=== PATIENT | male | born 1955 | race Caucasian/White ===

== ENCOUNTER 2016-11-19 09:32 | Inpatient (IN) | payer MEDICARE, MEDICAID, OTHER ==
[~2016-11-19] VITALS: Ht 188 cm; Wt 126.6 kg
[2016-11-19] VITALS (7 sets, daily range): BP systolic 141–190; BP diastolic 73–101; PULSE 110–126; RESP 20–32; TEMP 98.7; O2SAT 93–96
[~2016-11-19 09:32] MED LIST: DUONI INH; GUAI600 PO; LISI-360 PO; LORTA5 PO; MEDR4PAK3 PO; SYMB160A INH; Z.0.OXYGEN INH
[2016-11-19] MEDS ORDERED: SODIUM CHLOR 0.9% 1000 ML INJ 1,000 ML IV ONE (09:35)
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
[2016-11-19] MEDS ORDERED: SYMB160A INH (09:48)
[2016-11-19] MEDS ORDERED: ALBUAER3 INH (09:48)
[2016-11-19] MEDS ORDERED: LISI-515 PO (09:48)
[2016-11-19] MEDS ORDERED: GLIP5TAB8 PO (09:48)
[2016-11-19] MEDS ORDERED: METF1000 PO (09:48)
[2016-11-19] MEDS: RESP: ALBUTEROL 2.5 MG/IPRATROPIUM 0.5 MG NEB (SCH) INH ×6 (09:51→23:33)
[2016-11-19 10:06] LABS: AUTOMATED NEUTROPHIL # 12.1 TH/MM3 (1.8-7.7); BASOPHIL # 0.1 TH/MM3 (0-0.2); BASOPHIL % 0.7 % (0.0-2.0); EOSINOPHIL # 0.1 TH/MM3 (0-0.4); EOSINOPHIL % 0.8 % (0.0-4.0); HEMO FLAGS DIFF FINAL; LYMPH % 14.7 % (9.0-44.0); LYMPHOCYTE # 2.4 TH/MM3 (1.0-4.8); MEAN CELL VOLUME 82.1 FL (80.0-100.0); MEAN CORPUSCULAR HEMOGLOBIN 27.1 PG (27.0-34.0); MONO % 7.7 % (0.0-8.0); NEUT % 76.1 % (16.0-70.0); PLATELET COUNT 242 TH/MM3 (150-450); RED BLOOD COUNT 6.09 MIL/MM3 (4.50-5.90); RED CELL DISTRIBUTION WIDTH 14.4 % (11.6-17.2)
--- NOTE | 2016-11-19 10:21 | RADRPT ---
EXAM DATE/TIME: 11/19/2016 09:56 [place] COMPARISON: CT THORAX W/O CONTRAST, October 18, 2014, 12:54. INDICATIONS : Short of breath. MEDICAL HISTORY : None. SURGICAL HISTORY : None. ENCOUNTER: Initial ACUITY: 3 days PAIN SCORE: 0/10 LOCATION: Bilateral chest FINDINGS: The lungs are hyperinflated. There is blunting of the lateral costophrenic angles consistent with sma ll pleural effusions. Remainder of the lungs are clear. Heart size is normal. Pulmonary vasculature i s normal. CONCLUSION: Stable emphysematous changes of lungs. Small bilateral pleural effusions.. Ann Romero MD on November 19, 2016 at 10:19 Board Certified Radiologist. This report was verified electronically.
[2016-11-19 10:22] LABS: ALKALINE PHOSPHATASE 100 U/L (45-117); ALT (GPT) 29 U/L (12-78); ANION GAP 9 MEQ/L (5-15); AST (GOT) 13 U/L (15-37); BICARBONATE 25.5 MEQ/L (21.0-32.0); BLOOD UREA NITROGEN 9 MG/DL (7-18); CHLORIDE 101 MEQ/L (98-107); GLOMERULAR FILTRATION RATE 90 ML/MIN (>89); SODIUM (NA) 135 MEQ/L (136-145); TOTAL BILIRUBIN ADULT 0.7 MG/DL (0.2-1.0)
[2016-11-19 10:23] LABS: POTASSIUM 3.9 MEQ/L (3.5-5.1)
[2016-11-19] MEDS ORDERED: cefTRIAXone INJ 2,000 MG in SODIUM CHLORIDE 0.9% INJ 100 ML IV STA (10:35)
[2016-11-19] MEDS ORDERED: AZITHROMYCIN INJ 500 MG in SODIUM CHLOR 0.9% 250 ML INJ 250 ML IV STA (10:35)
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
[2016-11-19] MEDS ORDERED: ALBU.5I NEB (11:26)
[2016-11-19] MEDS ORDERED: ACETAMINOPHEN 325 MG TAB PO PRN (11:30)
[2016-11-19] MEDS ORDERED: NALOXONE HCL 0.4 MG/ML AMP IV PRN (11:30)
[2016-11-19] MEDS ORDERED: RESP: ALBUTEROL 2.5 MG/3 ML NEB (PRN) INH (11:30)
[2016-11-19] MEDS ORDERED: SODIUM CHLORIDE 0.9% FLUSH 5 ML FLUSH FLUSH PRN (11:30)
[2016-11-19] MEDS ORDERED: hydrALAZINE HCL 10 MG TAB PO PRN (11:45)
[2016-11-19] MEDS ORDERED: ONDANSETRON ODT 4 MG TAB PO PRN (11:45)
[2016-11-19] MEDS ORDERED: GLUCAGON 1 MG/ML VIAL OTHER PRN (11:45)
[2016-11-19] MEDS ORDERED: DEXTROSE 50% IN WATER 50 ML VIAL(D50) IV PUSH PRN (11:45)
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
[2016-11-19 11:56] LABS: LACTIC ACID GHOST NOT REPORTABLE
[2016-11-19] MEDS: methylPREDNISolone SOD SUCC 125 MG/2 ML VIAL IVP SCH ×2 (11:57→18:08)
[2016-11-19] MEDS: ENOXAPARIN SODIUM 40 MG/0.4 ML SYRINGE SQ SCH (11:57)
[2016-11-19] MEDS: BUDESONIDE-FORMOTEROL 160/4.5 MCG INHALER INH SCH ×2 (12:32→21:00)
[2016-11-19] MEDS: PANTOPRAZOLE SOD 40 MG DELAYED RELEASE TAB PO SCH (13:01)
[2016-11-19] MEDS: LISINOPRIL 20 MG TAB PO SCH (13:01)
[2016-11-19 13:24] LABS: BLOOD GAS BASE EXCESS -3.2 mmol/L (-2-2); BLOOD GAS CARBOXYHEMOGLOBIN 2.4 % (0-4); BLOOD GAS HCO3 21 mmol/L (22-26); BLOOD GAS O2 HGB SATURATION 90 % (90-100); BLOOD GAS OXYGEN CONTENT 21.7 Vol % (12.0-20.0); BLOOD GAS PCO2 36 mmHg (38-42); BLOOD GAS PO2 67 mmHG (61-120); BLOOD GAS TOTAL HGB 17.1 G/DL (12.0-16.0); TEMP CORR TO 98.6
[2016-11-19 13:25] LABS: CRITICAL VALUE NO; DRAW SITE LT RADIAL; LITER FLOW 3 L/M; NUMBER OF ARTERIAL PUNCTURES 1; OXYGEN DEVICE NASAL CANNULA; STAT YES; ULNAR PULSE Y
[2016-11-19 14:36] LABS: LACTIC ACID GHOST NOT REPORTABLE
[2016-11-19] MEDS: NICOTINE 21 MG/24 HR PATCH TD SCH (15:05)
[2016-11-19] MEDS: INSULIN ASPART SUPPLEMENTAL SCALE SQ SCH ×2 (16:41→21:00)
[2016-11-19] MEDS: SODIUM CHLORIDE 0.9% FLUSH 5 ML FLUSH FLUSH SCH (21:00)
[2016-11-20] VITALS (9 sets, daily range): BP systolic 128–161; BP diastolic 66–78; PULSE 101–114; RESP 18–22; TEMP 97.5–98.8; O2SAT 93–95
[2016-11-20] MEDS: methylPREDNISolone SOD SUCC 125 MG/2 ML VIAL IVP SCH ×4 (00:17→18:51)
[2016-11-20] MEDS: RESP: ALBUTEROL 2.5 MG/IPRATROPIUM 0.5 MG NEB (SCH) INH ×3 (03:43→11:46)
[2016-11-20 04:27] LABS: AUTOMATED NEUTROPHIL # 15.7 TH/MM3 (1.8-7.7); BASOPHIL # 0.1 TH/MM3 (0-0.2); BASOPHIL % 0.5 % (0.0-2.0); EOSINOPHIL % 0.2 % (0.0-4.0); HEMATOCRIT 46.1 % (39.0-51.0); HEMO FLAGS DIFF FINAL; LYMPH % 6.8 % (9.0-44.0); LYMPHOCYTE # 1.2 TH/MM3 (1.0-4.8); MEAN CELL VOLUME 81.7 FL (80.0-100.0); MEAN CORPUSCULAR HEMOGLOBIN 27.4 PG (27.0-34.0); MEAN CORPUSCULAR HGB CONC 33.5 % (32.0-36.0); MONO % 2.3 % (0.0-8.0); NEUT % 90.2 % (16.0-70.0); PLATELET COUNT 219 TH/MM3 (150-450); RED BLOOD COUNT 5.64 MIL/MM3 (4.50-5.90); RED CELL DISTRIBUTION WIDTH 14.5 % (11.6-17.2); WHITE BLOOD COUNT 17.4 TH/MM3 (4.0-11.0)
[2016-11-20 04:58] LABS: BICARBONATE 24.2 MEQ/L (21.0-32.0); POTASSIUM 3.9 MEQ/L (3.5-5.1)
[2016-11-20] MEDS: INSULIN ASPART SUPPLEMENTAL SCALE SQ SCH ×4 (07:00→22:25)
[2016-11-20] MEDS: REMOVE OLD NICODERM (NICOTINE) PATCH TD SCH (09:00)
[2016-11-20] MEDS ORDERED: LISINOPRIL 20 MG TAB PO SCH (09:00)
[2016-11-20] MEDS: NICOTINE 21 MG/24 HR PATCH TD SCH (09:00)
[2016-11-20] MEDS ORDERED: NICOTINE 21 MG/24 HR PATCH TD SCH (09:00)
--- NOTE | 2016-11-20 09:33 | HHI.FPPN ---
Subjective Remarks Patient seen and examined this am. Feels that hes breathing better but still worse than his base line. He is denying CP. Reports that his hernia popped out twice. He has had no fevers. Still requiring 4 L by NC, saturating at 94% (Alexandrea Christensen MD R3) Objective Vitals Vital Signs Date Time Temp Pulse Resp B/P Pulse Ox O2 Delivery O2 Flow Rate FiO2 11/20/16 04:00 101 18 147/73 94 Nasal Cannula 3 11/20/16 00:00 109 20 131/75 94 Nasal Cannula 3 11/19/16 19:37 93 Nasal Cannula 3.00 11/19/16 19:30 116 20 141/73 94 Nasal Cannula 3 11/19/16 15:00 118 22 160/74 94 Room Air 11/19/16 12:00 116 22 164/90 94 Nasal Cannula 3 11/19/16 11:54 93 Nasal Cannula 3 11/19/16 11:00 110 24 170/95 95 BiPAP 50 11/19/16 09:48 96 60 11/19/16 09:44 97 BiPAP 50 11/19/16 09:41 98.7 126 32 190/101 96 I/O 11/19/16 11/19/16 11/19/16 11/20/16 11/20/16 11/20/16 07:00 15:00 23:00 07:00 15:00 23:00 Intake Total 240 ml Output Total 400 ml Balance -160 ml Intake Oral 240 ml Output Urine Total 400 ml # Voids 1 (Alexandrea Christensen MD R3) Result Diagram: 11/20/1641011/20/16410 Imaging Last Impressions Chest X-Ray 11/19/16934 Signed Impressions: Service Date/Time: Saturday, November 19, 2016 09:56 - CONCLUSION: Stable emphysematous changes of lungs. Small bilateral pleural effusions.. Ann Romero MD Objective Remarks CONST: Adult male in appears comfortable DERM: Mildline back with healing biopsy site- erythematous 5 x 7cm midline circular dermatitis. Stasis dermatitis at ankles. Cat scratches on UE. HEENT: PERRL. EOMI. MMM. NECK: Thick neck. CV: RRR. No murmurs. No peripheral edema. Pulse 2+ radial. Cap refil <2 sec. RESP: no increase work of breathing, prolong expiratory phase, bilat exp wheezes diffusely. GI: Abdomen obese, NTND. +BS. MSK: Moves all four limbs against gravity. NEURO: Motor and sensory function grossly intact. PSYCH: Affect appropriate. Moderate insight. (Alexandrea Christensen MD R3) A/P Assessment and Plan 61y male with history of COPD/emphysema and tobacco abuse presents with COPD exacerbation. Discharge Planning dc pending improved clinical improvement. (Alexandrea Christensen MD R3) Attending Attestation A detailed discussion with Dr Christensen, Dr Espinal, Dr Brooks and Dr Uriostegui about patients admission was held this morning, patient was then seen and examined by the team, agree with the contents of this note,Assessment and Plan appropiate, See Orders. (Christopher Trivedi MD) Problem List: (1) COPD exacerbation Status: Acute Plan: Impression: Increased dyspnea, sputum production, and CV disease places patient at moderate risk COPD exacerbation. CXR (11/19) negative for acute infiltrate. Leukocytosis improving. -COPD educator consult, respiratory consult, PT consult O2 supplimentation, maintains ats btw 88-92%, incentive spirometry -Levofloxacin 750mg PO daily (11/19- ) -Solu-Medrol 60mg q6h IV MELISSA + PPI ppx -Duonebs q4h MELISSA + Symbicort BID +-Albuterol q2h PRN -Influenza neg A/B - Sputum Cx ordered - Persistent tachycardia could be due to breathing treatments, but combined with hypoxia will r/o PE with CTA (2) CAD (coronary artery disease) Status: Chronic Plan: Impression: History of [place] ~1999. Denies grafts. -Continue home lisinopril -Denies home aspirin, statin, antiplatelet, anticoagulant. Maximize CAD medications while inpatient -Continue telemetry -Daily BMPs (3) DM2 (diabetes mellitus, type 2) Status: Chronic Plan: -Hold home glipizide and metformin 1000mg BID -LSSI, Accue-Checks (4) Tobacco abuse Status: Chronic Plan: -Smoking cessation counseling provided -Nicotine patch 21mcg patch apply daily, remove HS to avoid bad dreams (5) Obesity (BMI 30-39.9) Status: Chronic Plan: - encourage lifestyle modifications to reach healthy weight BMI <25 (6) FEN/PPX Status: Acute Plan: Fluids: PO Electrolytes: monitor and replete PRN, wnl on admission Nutrition: Diabetic diet, heart healthy diet DVT ppx: SCDs + Lovenox 40mg subcutaneous daily GI ppx: Protonix 40mg daily (on steroids) (Alexandrea Christensen MD R3) Problem Qualifiers (1) CAD (coronary artery disease): Qualified Code: I25.10 - Coronary artery disease involving [place] coronary artery of [place] heart, angina presence unspecified (2) DM2 (diabetes mellitus, type 2): Qualified Code: E11.8 - Type 2 diabetes mellitus with complication, without long-term current use of insulin Alexandrea Christensen MD R3 Nov 20, 2016 09:33 Christopher Trivedi MD Nov 20, 2016 16:29
[2016-11-20] MEDS ORDERED: IOHEXOL 350 MG/ML 10 ML VIAL (for RAD DIAG) IV ONE (10:01)
--- NOTE | 2016-11-20 10:14 | RADRPT ---
EXAM DATE/TIME: 11/20/2016 09:45 [facility] COMPARISON: CT THORAX W/O CONTRAST, October 18, 2014, 12:54. INDICATIONS : Shortness of breath. IV CONTRAST: 70 cc Omnipaque 350 (iohexol) IV RADIATION DOSE: 22.27 CTDIvol (mGy) MEDICAL HISTORY : Chronic obstructive pulmonary disease. Myocardial infarction. Congestive heart failure.Hypertension, Diabetes. SURGICAL HISTORY : None. ENCOUNTER: Initial ACUITY: 2 days PAIN SCALE: 0/10 LOCATION: chest TECHNIQUE: Volumetric scanning of the chest was performed using a pulmonary embolism protocol MIP images were reconstructed. Using automated exposure control and adjustment of the mA and/or kV acco rding to patient size, radiation dose was kept as low as reasonably achievable to obtain optimal diag nostic quality images. FINDINGS: PULMONARY ARTERIES:No filling defects are seen in the pulmonary arteries through the segmental level. LUNGS: The previously noted small right-sided pleural effusion has slightly decreased in size. Th ere is a persistent area of peripheral parenchymal increased density with adjacent swelling of vessel s and adjacent mild pleural thickening consistent with rounded atelectasis. This appears unchanged fr om the exam of 2013. No new areas of consolidation are noted. Stable background of moderate centrilob ular emphysematous change. PLEURAE: Small right-sided pleural effusion and adjacent pleural thickening. MEDIASTINUM: There is good visualization of the great vessels of the middle mediastinum. No evid ence of mediastinal or hilar adenopathy/mass. MUSCULOSKELETAL: Within normal limits for patient age. MISCELLANEOUS: Splenic calcifications consistent with granulomatous disease. Diffuse fatty infilt ration of the liver. CONCLUSION: 1. No evidence of PE. 2. Stable moderate centrilobular emphysema with an area of persistent rounded atelectasis identified in the right lower lung, unchanged from 2014. There is a small right-sided pleural effusion which has decreased in size as compared to the prior exam. Ann Romero MD on November 20, 2016 at 10:07 Board Certified Radiologist. This report was verified electronically.
[2016-11-20] MEDS: LEVOFLOXACIN 750 MG TAB PO SCH (10:35)
[2016-11-20] MEDS: PANTOPRAZOLE SOD 40 MG DELAYED RELEASE TAB PO SCH (10:35)
[2016-11-20] MEDS: LISINOPRIL 20 MG TAB PO SCH (10:35)
[2016-11-20] MEDS: BUDESONIDE-FORMOTEROL 160/4.5 MCG INHALER INH SCH ×2 (10:36→22:23)
[2016-11-20] MEDS: ENOXAPARIN SODIUM 40 MG/0.4 ML SYRINGE SQ SCH (14:04)
[2016-11-20] MEDS ORDERED: RESP: IPRATROPIUM 0.5 MG/2.5 ML NEB NEB PRN (16:00)
[2016-11-20] MEDS: SODIUM CHLORIDE 0.9% FLUSH 5 ML FLUSH FLUSH SCH (22:30)
--- NOTE | 2016-11-20 22:50 | EKG ---
Date Performed: 11/19/2016 Time Performed: 11:53:39 PTAGE: 61 years EKG: SINUS TACHYCARDIA MARKED LEFT AXIS DEVIATION ABNORMAL ECG PREVIOUS TRACING : 10/17/2014 01.22 Compared to prior tracing no significant change DOCTOR: Klaus Rock Interpretating Date/Time 11/20/2016 22:46:34
[2016-11-21] VITALS (9 sets, daily range): BP systolic 117–151; BP diastolic 57–86; PULSE 85–109; RESP 18–24; TEMP 97.2–98; O2SAT 92–97
[2016-11-21] MEDS: methylPREDNISolone SOD SUCC 125 MG/2 ML VIAL IVP SCH ×2 (00:42→06:26)
[2016-11-21] MEDS: SODIUM CHLORIDE 0.9% FLUSH 5 ML FLUSH FLUSH SCH ×3 (00:47→21:07)
[2016-11-21 06:03] LABS: AUTOMATED NEUTROPHIL # 17.4 TH/MM3 (1.8-7.7); BASOPHIL % 0.1 % (0.0-2.0); HEMATOCRIT 45.4 % (39.0-51.0); HEMO FLAGS DIFF FINAL; LYMPH % 4.7 % (9.0-44.0); LYMPHOCYTE # 0.9 TH/MM3 (1.0-4.8); MEAN CELL VOLUME 82.5 FL (80.0-100.0); MEAN CORPUSCULAR HEMOGLOBIN 27.4 PG (27.0-34.0); MEAN CORPUSCULAR HGB CONC 33.2 % (32.0-36.0); MONO % 3.1 % (0.0-8.0); NEUT % 92.1 % (16.0-70.0); PLATELET COUNT 232 TH/MM3 (150-450); RED BLOOD COUNT 5.51 MIL/MM3 (4.50-5.90); RED CELL DISTRIBUTION WIDTH 14.5 % (11.6-17.2); WHITE BLOOD COUNT 18.9 TH/MM3 (4.0-11.0)
[2016-11-21 06:20] LABS: BICARBONATE 26.4 MEQ/L (21.0-32.0); POTASSIUM 4.1 MEQ/L (3.5-5.1)
[2016-11-21] MEDS: INSULIN ASPART SUPPLEMENTAL SCALE SQ SCH ×4 (06:27→21:06)
[2016-11-21] MEDS ORDERED: RESP: ALBUTEROL 2.5 MG/3 ML NEB (PRN) NEB (07:30)
[2016-11-21] MEDS ORDERED: RESP: IPRATROPIUM 0.5 MG/2.5 ML NEB NEB SCH (08:00)
[2016-11-21] MEDS: PANTOPRAZOLE SOD 40 MG DELAYED RELEASE TAB PO SCH (08:56)
[2016-11-21] MEDS: LEVOFLOXACIN 750 MG TAB PO SCH (08:56)
[2016-11-21] MEDS: LISINOPRIL 20 MG TAB PO SCH (08:56)
[2016-11-21] MEDS: NICOTINE 21 MG/24 HR PATCH TD SCH (08:57)
[2016-11-21] MEDS: REMOVE OLD NICODERM (NICOTINE) PATCH TD SCH (08:57)
[2016-11-21] MEDS: BUDESONIDE-FORMOTEROL 160/4.5 MCG INHALER INH SCH ×2 (09:06→21:07)
--- NOTE | 2016-11-21 09:20 | HHI.FPPN ---
Subjective Remarks No acute issues overnight. Mild tachycardia ranging 851 12 overnight. Currently saturating 95% on 4L NC. Overall, patient is feeling much better today. His shortness of breath has significantly improved. He denies any chest pain, fever, chills, nausea, vomiting, or diarrhea. He is tolerating by mouth. Regular bowel movements. Objective Vitals Vital Signs Date Time Temp Pulse Resp B/P Pulse Ox O2 Delivery O2 Flow Rate FiO2 11/21/16 08:00 97.2 85 20 135/70 95 11/21/16 04:00 98.0 97 20 133/86 93 11/21/16 00:00 97.4 105 22 133/80 92 11/20/16 21:48 Nasal Cannula 4.00 11/20/16 21:00 108 11/20/16 20:00 97.6 112 20 156/70 93 11/20/16 17:00 97.5 106 20 161/78 93 11/20/16 14:12 114 22 128/66 95 11/20/16 14:00 114 22 128/66 95 11/20/16 11:49 93 Nasal Cannula 4.00 I/O 11/20/16 11/20/16 11/20/16 11/21/16 11/21/16 11/21/16 07:00 15:00 23:00 07:00 15:00 23:00 Intake Total 360 ml 240 ml Output Total 1200 ml Balance -840 ml 240 ml Intake Oral 360 ml 240 ml Output Urine Total 1200 ml # Voids 2 Result Diagram: 11/21/16 0458 11/21/[address] Angiography 11/20/16 0000 Signed Impressions: Service Date/Time: Sunday, November 20, 2016 09:45 - CONCLUSION: 1. No evidence of PE. 2. Stable moderate centrilobular emphysema with an area of persistent rounded atelectasis identified in the right lower lung, unchanged from 2014. There is a small right-sided pleural effusion which has decreased in size as compared to the prior exam. Ann Romero MD Chest X-Ray 11/19/16 0935 Signed Impressions: Service Date/Time: Saturday, November 19, 2016 09:56 - CONCLUSION: Stable emphysematous changes of lungs. Small bilateral pleural effusions.. Ann Romero MD Objective Remarks CONST: Adult male sitting up in bed, appears comfortable. DERM: Midline back with healing biopsy site- 5 x 7cm area of erythema. Stasis dermatitis at ankles. Cat scratches on UE and lower extremities bilaterally. HEENT: PERRLA. EOMI. MMM. NECK: Thick neck. CV: RRR. No murmurs. No peripheral edema. Pulse 2+ radial. Cap refil <2 sec. RESP: Regular respiratory effort, able to talk in complete sentences without shortness of breath. No accessory muscle use. Nasal cannula in place. Prolonged expiratory phase with wheezes throughout lung olsen bilaterally. Improved air movement compared to prior exam. GI: Abdomen obese, NTND. +BS. MSK: Moves all four limbs against gravity. NEURO: Motor and sensory function grossly intact. PSYCH: Affect appropriate. A/P Assessment and Plan 61y male with history of COPD/emphysema and tobacco abuse who presented with shortness of breath and was admitted for COPD exacerbation. Discharge Planning Anticipate discharge in the next 1-2 days pending clinical improvement. Problem List: (1) COPD exacerbation Status: Acute Plan: Increased dyspnea, sputum production, and history of CV disease- moderate COPD exacerbation. 11/19 CXR significant for stable emphysematous changes of lung. Small bilateral pleural effusions. 11/20 CTA showed no evidence of PE. Stable moderate centrilobular emphysema with an area of persistent rounded atelectasis identified in right lower lung. Leukocytosis of 16.0 on admission, currently trending up likely secondary to steroids. Patient has O2 at home but admits to poor compliance O2 sat 92-95% on 4L O2 Influenza A/B negative 11/18/16 PFT's: Severe obstruction, FVC 41ml, FEV1 58ml, lung age 89 years. No significant improvement in FVC and FEV1 with albuterol. Plan: -COPD educator consult O2 supplementation PRN, maintains sats btw 88-92%, incentive spirometry -Levofloxacin 750mg PO daily (11/19- ) -Solu-Medrol 60mg q6h IV MELISSA + PPI ppx, will transition to PO Prednisone 40mg PO daily today - Symbicort BID - DuoNeb Q4H - Albuterol Q2H PRN - Home O2 Walk test (2) CAD (coronary artery disease) Status: Chronic Plan: Impression: History of [place] ~1999. Denies grafts. -Continue home lisinopril -Denies home aspirin, statin, antiplatelet, anticoagulant. Maximize CAD medications while inpatient -Continue telemetry -Daily BMPs (3) DM2 (diabetes mellitus, type 2) Status: Chronic Plan: -Hold home glipizide and metformin 1000mg BID Bedside glucose ranging [id number], requiring 26 units in the past 24 hours -Accu-Cheks and Low dose SSI (4) Tobacco abuse Status: Chronic Plan: -Smoking cessation counseling provided -Nicotine patch 21mcg patch apply daily, remove HS to avoid bad dreams (5) Obesity (BMI 30-39.9) Status: Chronic Plan: - encourage lifestyle modifications to reach healthy weight BMI <25 (6) FEN/PPX Status: Acute Plan: Fluids: None Electrolytes: wnl, continue to monitor and replete PRN Nutrition: Diabetic diet, heart healthy diet DVT ppx: SCDs + Lovenox 40mg subcutaneous daily GI ppx: Protonix 40mg daily (on steroids) ad[place] Dr. Todd Trivedi Problem Qualifiers (1) CAD (coronary artery disease): Qualified Code: I25.10 - Coronary artery disease involving [place] coronary artery of [place] heart, angina presence unspecified (2) DM2 (diabetes mellitus, type 2): Qualified Code: E11.8 - Type 2 diabetes mellitus with complication, without long-term current use of insulin Renuka Espinal MD R2 Nov 21, 2016 09:20
[2016-11-21] MEDS: RESP: ALBUTEROL 2.5 MG/IPRATROPIUM 0.5 MG NEB (SCH) NEB ×3 (12:19→20:22)
[2016-11-21] MEDS: predniSONE 50 MG TAB PO SCH (12:28)
[2016-11-21] MEDS: ENOXAPARIN SODIUM 40 MG/0.4 ML SYRINGE SQ SCH (12:29)
[2016-11-22] VITALS: BP 131/65; PULSE 94; RESP 20; TEMP 97.5; O2SAT 92
[2016-11-22 04:00] VITALS: BP 125/64; PULSE 92; RESP 20; TEMP 97.1; O2SAT 95
[2016-11-22] MEDS: INSULIN ASPART SUPPLEMENTAL SCALE SQ SCH (06:10)
[2016-11-22 07:32] LABS: HEMATOCRIT 48.4 % (39.0-51.0); MEAN CELL VOLUME 82.2 FL (80.0-100.0); MEAN CORPUSCULAR HEMOGLOBIN 27.3 PG (27.0-34.0); MEAN CORPUSCULAR HGB CONC 33.1 % (32.0-36.0); PLATELET COUNT 259 TH/MM3 (150-450); RED BLOOD COUNT 5.88 MIL/MM3 (4.50-5.90); RED CELL DISTRIBUTION WIDTH 14.7 % (11.6-17.2); REVIEW FLAG FINAL; WHITE BLOOD COUNT 16.1 TH/MM3 (4.0-11.0)
[2016-11-22 08:00] VITALS: BP 172/82; PULSE 102; RESP 24; TEMP 97.5; O2SAT 94
[2016-11-22] MEDS ORDERED: PANT40TA3 PO (08:12)
[2016-11-22] MEDS ORDERED: LEVA750T PO (08:12)
--- NOTE | 2016-11-22 08:12 | HHI.DCPOC ---
Discharge Care Plan Diagnosis: (1) COPD exacerbation Goals to Promote Your Health * To prevent worsening of your condition and complications * To maintain your health at the optimal level Directions to Meet Your Goals Take your medications as prescribed Follow your dietary instruction Follow activity as directed Keep your appointments as scheduled Take your immunizations and boosters as scheduled If your symptoms worsen call your PCP, if no PCP go to Urgent Care Center or Emergency Room Smoking is Dangerous to Your Health. Avoid second hand smoke Call the 24-hour hour crisis hotline for domestic abuse at Renuka Espinal MD R2 Nov 22, 2016 08:12
[2016-11-22] MEDS ORDERED: VENTAER INH (08:15)
[2016-11-22] MEDS ORDERED: OXYGENTANK NAS.CANULA ×2 (08:15→08:17)
[2016-11-22] MEDS: RESP: ALBUTEROL 2.5 MG/IPRATROPIUM 0.5 MG NEB (SCH) NEB (08:16)
[2016-11-22] MEDS ORDERED: PRED20 PO (08:17)
[2016-11-22 08:19] VITALS: O2SAT 94
--- NOTE | 2016-11-22 08:35 | HHI.FPPN ---
Subjective Remarks No acute events overnight. AFVSS. Feels he is breathing much better. Denies f/ c, n/v, CP/pal, abd pain. Requesting discharge. Endorsed understanding of discharge with antibiotic, steroid, and follow up with PCP. All questions answered. Has oxygen at home, 1.5miles from here. Does not have portable O2. Will discharge with O2 tank. Objective Vitals Vital Signs Date Time Temp Pulse Resp B/P Pulse Ox O2 Delivery O2 Flow Rate FiO2 11/22/16 08:19 94 Nasal Cannula 4.00 11/22/16 04:00 97.1 92 20 125/64 95 11/22/16 00:00 97.5 94 20 131/65 92 11/21/16 20:26 100 11/21/16 20:25 95 Nasal Cannula 4.00 11/21/16 20:00 97.4 104 24 140/82 92 11/21/16 16:00 97.4 99 22 151/82 95 11/21/16 16:00 90 11/21/16 12:31 4.00 11/21/16 12:21 94 Nasal Cannula 4.00 11/21/16 12:00 97.3 109 20 124/61 92 I/O 11/21/16 11/21/16 11/21/16 11/22/16 11/22/16 11/22/16 07:00 15:00 23:00 07:00 15:00 23:00 Intake Total 240 ml 720 ml 480 ml 360 ml Output Total 360 ml Balance 240 ml 720 ml 480 ml 0 ml Intake Oral 240 ml 720 ml 480 ml 360 ml IV Total 0 ml Output Urine Total 360 ml # Voids 2 3 4 # Bowel Movements 3 0 0 Result Diagram: 11/22/16 0720 11/21/16 [address] Angiography 11/20/16 0000 Signed Impressions: Service Date/Time: Sunday, November 20, 2016 09:45 - CONCLUSION: 1. No evidence of PE. 2. Stable moderate centrilobular emphysema with an area of persistent rounded atelectasis identified in the right lower lung, unchanged from 2014. There is a small right-sided pleural effusion which has decreased in size as compared to the prior exam. Ann Romero MD Chest X-Ray 11/19/16 0935 Signed Impressions: Service Date/Time: Saturday, November 19, 2016 09:56 - CONCLUSION: Stable emphysematous changes of lungs. Small bilateral pleural effusions.. Ann Romero MD Objective Remarks CONST: Adult male sitting up in bed, appears comfortable. DERM: Midline back with healing biopsy site- 5 x 7cm area of erythema. Stasis dermatitis at ankles. Cat scratches on UE and lower extremities bilaterally. HEENT: PERRLA. EOMI. MMM. NECK: Thick neck. CV: RRR. No murmurs. No peripheral edema. Pulse 2+ radial. Cap refil <2 sec. RESP: Able to talk in complete sentences without shortness of breath. NC in place. Prolonged expiratory phase with wheezes throughout lung olsen bilaterally. GI: Abdomen obese, NTND. +BS. MSK: Moves all four limbs against gravity. NEURO: Motor and sensory function grossly intact. PSYCH: Affect gruff, appropriate. A/P Assessment and Plan 61y male with history of COPD/emphysema and tobacco abuse, presented with shortness of breath, admitted 11/19/15 for COPD exacerbation. Discharge Planning Today SDW: Dr Jaramillo, Student Doctor Radha, MS4 DW: Dr Trivedi Problem List: (1) COPD exacerbation Status: Acute Plan: Increased dyspnea, sputum production, and history of CV disease- moderate COPD exacerbation. 11/19 CXR significant for stable emphysematous changes of lung. Small bilateral pleural effusions. 11/20 CTA showed no evidence of PE. Stable moderate centrilobular emphysema with an area of persistent rounded atelectasis identified in right lower lung. Leukocytosis of 16.0 on admission, currently trending up likely secondary to steroids. O2 sat 92-95% on 4L O2 Influenza A/B negative 11/18/16 PFT's: Severe obstruction, FVC 41ml, FEV1 58ml, lung age 89 years. No significant improvement in FVC and FEV1 with albuterol. Plan: -Home O2 Walk test: 87% on RA, 93% on 4L O2 at rest, walking not performed -COPD educator was consulted: O2 supplementation PRN, maintains sats btw 88-92% , incentive spirometry -Levofloxacin 750mg PO daily (11/20-11/25), discharge with med, 5 days total -Prednisone 40mg PO daily (11/19--11/24), discharge with med, 5 days total -Symbicort BID + DuoNeb Q4H +- Albuterol Q2H PRN -O2 at home but admits to poor compliance. Discharge with O2 tank (2) CAD (coronary artery disease) Status: Chronic Plan: Impression: History of [place] ~1999. Denies grafts. Plan -Continue home lisinopril -Denies home aspirin, statin, antiplatelet, anticoagulant. -Recommend when follow up with PCP, start aspirin 81mg, beta-andra, and statin due to history of [place] and CAD -Continue telemetry, Daily BMPs (3) DM2 (diabetes mellitus, type 2) Status: Chronic Plan: -Accu-Cheks and Low dose SSI -Resume home glipizide and metformin 1000mg BID at discharge (4) Tobacco abuse Status: Chronic Plan: -Smoking cessation counseling provided -Nicotine patch 21mcg patch apply daily, remove HS to avoid bad dreams -will discharge with nicotine patch (5) Obesity (BMI 30-39.9) Status: Chronic Plan: - encourage lifestyle modifications to reach healthy weight BMI <25 (6) FEN/PPX Status: Acute Plan: Fluids: PO Electrolytes: wnl, continue to monitor and replete PRN Nutrition: Diabetic diet, heart healthy diet DVT ppx: SCDs + Lovenox 40mg subcutaneous daily GI ppx: Protonix 40mg daily (on steroids) Problem Qualifiers (1) CAD (coronary artery disease): Qualified Code: I25.10 - Coronary artery disease involving [place] coronary artery of [place] heart, angina presence unspecified (2) DM2 (diabetes mellitus, type 2): Qualified Code: E11.8 - Type 2 diabetes mellitus with complication, without long-term current use of insulin Shauna Brooks MD R1 Nov 22, 2016 08:34
[2016-11-22] MEDS: LISINOPRIL 20 MG TAB PO SCH (08:39)
[2016-11-22] MEDS: predniSONE 50 MG TAB PO SCH (08:39)
[2016-11-22] MEDS: PANTOPRAZOLE SOD 40 MG DELAYED RELEASE TAB PO SCH (08:39)
[2016-11-22] MEDS: LEVOFLOXACIN 750 MG TAB PO SCH (08:39)
[2016-11-22] MEDS: SODIUM CHLORIDE 0.9% FLUSH 5 ML FLUSH FLUSH SCH (08:40)
[2016-11-22] MEDS: BUDESONIDE-FORMOTEROL 160/4.5 MCG INHALER INH SCH (08:40)
[2016-11-22] MEDS: NICOTINE 21 MG/24 HR PATCH TD SCH (08:41)
[2016-11-22] MEDS: REMOVE OLD NICODERM (NICOTINE) PATCH TD SCH (08:41)
[2016-11-22] MEDS ORDERED: NICO21DI2 TD (08:52)
--- NOTE | 2016-11-22 10:23 | HHI.DS ---
Discharge Summary Admission Date Nov 19, 2016 at 10:49 Discharge Date: Nov 22, 2016 Admitting Diagnosis COPD exacerbation/suspected pneumonia (1) COPD exacerbation Diagnosis: Principal Plan: Increased dyspnea, sputum production, and history of CV disease- moderate COPD exacerbation. 11/19 CXR significant for stable emphysematous changes of lung. Small bilateral pleural effusions. 11/20 CTA showed no evidence of PE. Stable moderate centrilobular emphysema with an area of persistent rounded atelectasis identified in right lower lung. Leukocytosis of 16.0 on admission, currently trending up likely secondary to steroids. O2 sat 92-95% on 4L O2 Influenza A/B negative 11/18/16 PFT's: Severe obstruction, FVC 41ml, FEV1 58ml, lung age 89 years. No significant improvement in FVC and FEV1 with albuterol. Plan: -Home O2 Walk test: 87% on RA, 93% on 4L O2 at rest, walking not performed -COPD educator was consulted: O2 supplementation PRN, maintains sats btw 88-92% , incentive spirometry -Levofloxacin 750mg PO daily (11/20-11/25), discharge with med, 5 days total -Prednisone 40mg PO daily (11/19--11/24), discharge with med, 5 days total -Symbicort BID + DuoNeb Q4H +- Albuterol Q2H PRN -O2 at home but admits to poor compliance. Discharge with O2 tank (2) CAD (coronary artery disease) Plan: Impression: History of PR ~1999. Denies grafts. Plan -Continue home lisinopril -Denies home aspirin, statin, antiplatelet, anticoagulant. -Recommend when follow up with PCP, start aspirin 81mg, beta-andra, and statin due to history of PR and CAD -Continue telemetry, Daily BMPs (3) DM2 (diabetes mellitus, type 2) Plan: -Accu-Cheks and Low dose SSI -Resume home glipizide and metformin 1000mg BID at discharge (4) Tobacco abuse Plan: -Smoking cessation counseling provided -Nicotine patch 21mcg patch apply daily, remove HS to avoid bad dreams -will discharge with nicotine patch (5) Obesity (BMI 30-39.9) Plan: - encourage lifestyle modifications to reach healthy weight BMI <25 (6) FEN/PPX Plan: Fluids: PO Electrolytes: wnl, continue to monitor and replete PRN Nutrition: Diabetic diet, heart healthy diet DVT ppx: SCDs + Lovenox 40mg subcutaneous daily GI ppx: Protonix 40mg daily (on steroids) Brief History On admission: 51y male w COPD/Emphysema, tobacco abuse, and DM2 presents with SOB, wheezing, and coughing x3 days. Recent increased coughing spells that are like "nails in his chest", with increase in clear sputum production. Used home Singulair BID, home albuterol nebulizer, and Pro-air rescue inhaler 4-6x daily (baseline 4x/ daily), without significant relief. Has home oxygenator and O2 tank that has not used for two years as satting 98% at home (per pt). Denies rhinorrhea, fevers/chills, sore throat, chest pain/palpitations, or sick contacts. Only recent health changes include attempting to quit smoking from 1 PPD to only one cigarette and removal of BCC from back six months ago. Denies hospitalization voer the past year for COPD exacerbation. Lives independently with cats. Denies having supervisor plasma. PCP is Dr. Wells. CBC/BMP: 11/22/16 0720 11/21/16 0458 Significant Findings Laboratory Tests Test 11/19/16 11/19/16 11/19/16 11/19/16 12:03 12:18 13:20 15:06 Lactic Acid Level 4.0 mmol/L 3.8 mmol/L 4.4 mmol/L (0.4-2.0) (0.4-2.0) (0.4-2.0) Troponin I LESS THAN 0.02 NG/ML (0.02-0.05) Blood Gas HCO3 21 mmol/L (22-26) Blood Gas Base Excess -3.2 mmol/L (-2-2) Arterial Blood Partial 36 mmHg (38-42) Pressure CO2 Arterial Blood Oxygen Content 21.7 Vol % (12.0-20.0) Blood Gas Hemoglobin 17.1 G/DL (12.0-16.0) Test 11/20/16 11/20/16 11/21/16 11/22/16 04:11 10:17 04:58 07:20 White Blood Count 17.4 TH/MM3 18.9 TH/MM3 16.1 TH/MM3 (4.0-11.0) (4.0-11.0) (4.0-11.0) Neutrophils (%) (Auto) 90.2 % 92.1 % (16.0-70.0) (16.0-70.0) Lymphocytes (%) (Auto) 6.8 % 4.7 % (9.0-44.0) (9.0-44.0) Neutrophils # (Auto) 15.7 TH/MM3 17.4 TH/MM3 (1.8-7.7) (1.8-7.7) Sodium Level 134 MEQ/L (136-145) Random Glucose 318 MG/DL 295 MG/DL (74-106) (74-106) Lactic Acid Level 2.9 mmol/L (0.4-2.0) Lymphocytes # (Auto) 0.9 TH/MM3 (1.0-4.8) Blood Urea Nitrogen 26 MG/DL (7-18) Imaging Last Impressions CT Angiography 11/20/16 0000 Signed Impressions: Service Date/Time: Sunday, November 20, 2016 09:45 - CONCLUSION: 1. No evidence of PE. 2. Stable moderate centrilobular emphysema with an area of persistent rounded atelectasis identified in the right lower lung, unchanged from 2014. There is a small right-sided pleural effusion which has decreased in size as compared to the prior exam. Ann Romero MD Chest X-Ray 11/19/16 0935 Signed Impressions: Service Date/Time: Saturday, November 19, 2016 09:56 - CONCLUSION: Stable emphysematous changes of lungs. Small bilateral pleural effusions.. Ann Romero MD PE at Discharge CONST: Adult male sitting up in bed, appears comfortable. DERM: Midline back with healing biopsy site- 5 x 7cm area of erythema. Stasis dermatitis at ankles. Cat scratches on UE and lower extremities bilaterally. HEENT: PERRLA. EOMI. MMM. NECK: Thick neck. CV: RRR. No murmurs. No peripheral edema. Pulse 2+ radial. Cap refil <2 sec. RESP: Able to talk in complete sentences without shortness of breath. NC in place. Prolonged expiratory phase with wheezes throughout lung olsen bilaterally. GI: Abdomen obese, NTND. +BS. MSK: Moves all four limbs against gravity. NEURO: Motor and sensory function grossly intact. PSYCH: Affect gruff, appropriate. Hospital Course Patient is a 61-year-old male with past medical history significant for COPD and tobacco abuse who presented with shortness of breath and was admitted for acute COPD exacerbation. Imaging as above. Influenza A/B-. COPD educator consult could. Patient was treated with duo nebs every 4 hours, albuterol every 2 hours when necessary, IV Solu-Medrol 60 mg every 6 hours IV 2 days and Levaquin 750 mg by mouth daily with improvement. He was transitioned to by mouth prednisone 40 mg daily. 11/18/16 PFT's: Severe obstruction, FVC 41ml, FEV1 58ml, lung age 89 years. No significant improvement in FVC and FEV1 with albuterol. He performed a home O2 walk test and was found to have a resting O2 saturation of 87% on room air and a resting O2 saturation of 93% on 4L NC. He has an oxygen tank at home but is poorly compliant. Counseling and education provided regarding compliance with oxygen and COPD medications and tobacco cessation. He is discharged home on Levaquin 750 mg by mouth daily and prednisone 40 mg daily. Advise follow-up with PCP in 1 week. Pt Condition on Discharge: Stable Discharge Disposition: Discharge Home Discharge Instructions DIET: Follow Instructions for: Heart Healthy Diet, Diabetic Diet Activities you can perform: Regular-No Restrictions Follow up Referrals: PCP Follow-up - 1 Week New Medications: Albuterol 18 GM Inh (Ventolin Hfa 18 GM Inh) 90 Mcg/Act Aer 2 PUFF INH Q4H PRN SHORTNESS OF BREATH #1 Ref 0 INHALER Oxygen tank (Oxygen tank) 1 Ea Tank 2 LITER COLLIN.CANULA CONTINUOUS Oxygen Concentrator Portable Gaseous 2 L/min via Nasal Cannula Continuous For 99 months HYPOXEMIA PREVENTION #1 CYLINDER Prednisone (Prednisone) 20 Mg Tab 40 MG PO DAILY #10 Ref 0 TAB Levofloxacin (Levaquin) 750 Mg Tab 750 MG PO Q24H #3 TAB Nicotine Patch (Nicotine Patch) 21 Mg/24 Hr Patch 1 PATCH TD DAILY Apply in AM. Remove before bed to avoid nightmares. Ok to smoke while using patch to cut down # cigarettes daily! #30 Ref 11 PATCH Pantoprazole (Pantoprazole) 40 Mg Tab 40 MG PO DAILY #30 TAB Continued Medications: Albuterol 8.5 GM Inh (Proair Hfa 8.5 GM Inh) 90 Mcg/Act Aer 1 PUFF INH Q4H 108 mcg/actuation PRN SHORTNESS OF BREATH #1 Ref 0 INHALER Albuterol Neb (Albuterol Neb) 2.5 Mg/0.5 Ml Neb 2.5 MG NEB Q4HR NEB Note: The Albuterol Sulfate Inhalation Solution is concentrated and must be diluted. Read complete instructions carefully before using. PRN SHORTNESS OF BREATH EA Budesonide-Formoterol Inh (Symbicort Inh) 160-4.5 Mcg/Act Aero 1 PUFF INH Q12HR #1 Ref 0 INHALER Glipizide (Glipizide) 5 Mg Tab 0.5 TAB PO BIDAC Take 30 minutes before a meal Blood Sugar Management #60 Ref 0 TAB Lisinopril (Lisinopril) 20 Mg Tab 20 MG PO DAILY #30 Ref 0 TAB Metformin (Metformin) 1,000 Mg Tab 1000 MG PO BIDPC With meals Blood Sugar Management #60 Ref 0 TAB Renuka Espinal MD R2 Nov 22, 2016 10:23
--- NOTE | 2016-11-25 10:03 | RSPPFT ---
DATE OF PROCEDURE: 11/19/16 COMMENTS: Spirometry with FVC of 3.1, FEV1 of 1.4, FEV1/FVC ratio at 46%. A positive but non-significant response to acutely inhaled bronchodilator. Flow volume loop suggests airways obstruction. IMPRESSION: 1. Moderately severe obstructive airways disease. 2 Non-significant response to acutely inhaled bronchodilator.
== END 2016-11-22 09:50 | disposition home or self-care (01) | DRG 191 ==
LOC: NEPE 09:32 → NEDH 10:49 → NEDA 19:31 → NEDH 11-20 00:41 → N04B 11-20 16:57
PROVIDERS: ADMIT Family Medicine; ATTEND Family Medicine
PROC: 5A09357 Assistance with Respiratory Ventilation, Less than 24 Consecutive Hours, Continuous Positive Airway Pressure (ICD-10-PCS; principal; 2016-11-19)
DX: J44.1 Chronic obstructive pulmonary disease with (acute) exacerbation (principal); J90 Pleural effusion, not elsewhere classified; E11.8 Type 2 diabetes mellitus with unspecified complications; Z99.81 Dependence on supplemental oxygen; J98.11 Atelectasis; I10 Essential (primary) hypertension; E66.9 Obesity, unspecified; H40.9 Unspecified glaucoma; F17.210 Nicotine dependence, cigarettes, uncomplicated; H26.9 Unspecified cataract; I25.119 Atherosclerotic heart disease of native coronary artery with unspecified angina pectoris; I25.2 Old myocardial infarction; Z79.84 Long term (current) use of oral hypoglycemic drugs; Z68.35 Body mass index [BMI] 35.0-35.9, adult; Z80.1 Family history of malignant neoplasm of trachea, bronchus and lung; Z91.19 Patient's noncompliance with other medical treatment and regimen; Z85.828 Personal history of other malignant neoplasm of skin; T38.0X5A Adverse effect of glucocorticoids and synthetic analogues, initial encounter
CPT/HCPCS: 36600; 71010; 71275; 80048; 80053; 82805; 82948; 83605; 83880; 84484; 85025; 85027; 87040; 87804; 93005; 94002; 94060; 94150; 94620; 94640; 94664; 96360; J0456; J0696; J1650; J1815; J2930; J7030; J7050; J7512; Q9967